=== PATIENT | male | born 1960 | race Caucasian/White ===

== ENCOUNTER 2018-01-16 15:17 | Emergency (ER) | payer MEDICARE, BC, SELFPAY ==
[2018-01-16 15:23] VITALS: BP 155/89; PULSE 76; RESP 14; TEMP 37; O2SAT 97
--- NOTE | 2018-01-16 15:42 | DI.REPORT_ITS ---
SYMPTOM/DIAGNOSIS: TWISTING INJURY PAIN PRIMARILY MEDIALLY LEFT KNEE: 01/16 Four views were obtained. There is mild narrowing of the medial tibial femoral cartilaginous joint space and there is medial femoral subluxation on the tibia. There is marked narrowing of the lateral patellofemoral cartilaginous joint space with marked lateral patellar subluxation. Very prominent hypertrophic spurring noted associated with lateral patellofemoral joint. CONCLUSION: DJD no evidence of acute injury.
[2018-01-16] MEDS: Acetaminophen 500 MG TAB 1000 MG PO (15:50)
--- NOTE | 2018-01-16 15:54 | ED.GENADUL_ITS ---
Disposition Clinical Impression: Avulsion, finger tip, Knee sprain Disposition: HOME Condition: Fair Instructions: Knee Sprain (ED), Finger Laceration (ED) Additional Instructions: Keep wound clean, dry, covered. He may wash with running water but do not soak or submerge. Please allow the adhesive to come off naturally, do not pick or pull at this. You may find a bandage to be beneficial to help pad the area and help with discomfort and also prevent him from picking at the adhesive. Please monitor for signs of infection including redness, warmth, drainage, increased pain, fever/chills. If these arise please seek care urgently once again. In regard to your knee pain, you have osteoarthritic changes on your x-ray. I am concerned he may have a meniscal injury versus ACL injury as my exam was slightly limited today. You do have a moderate effusion in the knee. Please contact orthopedics tomorrow to schedule follow-up. Encourage rest, ice, elevation. Tylenol and/or ibuprofen as needed for discomfort. Please continue with hinged knee brace until evaluated by orthopedics. If you develop new or worsening symptoms seek care urgently once again. Referrals: Gael Cardenas MD [ [facility] STAFF PHYSICIAN] - Medical Decision Making - Radiology Data Radiology results: report reviewed Radiology reviewed x-ray. They advised moderate sized knee joint effusion. Severe osteoarthritis of the patellofemoral joint with obliteration of the lateral patellofemoral joint space and lateral subluxation of the patella. Mild to moderate degenerative arthrosis of the tibiofemoral joint. 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 No fracture. Soft tissues are unremarkable. - Medical Decision Making Patient presents today with chief complaint of laceration to the right fifth digit and left knee pain. On exam, there is a section of avulsed tissue on the pad of the fifth digit. Patient is right-hand dominant. The wound is actively bleeding. No other injuries noted on the affected hand. Exam of the left lower extremity is significant for moderate knee effusion. Patient does have point tenderness over the anterior medial joint line. Ligamentously intact although my exam is slightly limited secondary to guarding and limited range of motion from swelling. I am concerned for possible meniscal injury. However, given the mechanism of injury I feel that imaging to evaluate for possible bony abnormality is appropriate. Patient will be given Tylenol to help with discomfort. We discussed the care of the avulsed tissue. After he returns from imaging, plan to anesthetize the digit, cleansed the wound and cover with adhesive. Discussed this plan with the patient who voiced understanding and is in agreement with plan. Patient and I discussed care of the digit with digital block, Minaya adhesive closure. We discussed risk/benefits as well as expected procedural steps. He voiced understanding and wished to proceed. Procedure note: Using standard sterile technique, a digital block was performed using 2% lidocaine plain. 5 cc was used. The sufficiently anesthetized the digit. Wound was then copiously irrigated with sterile saline. A tourniquet was used to the wound may be explored to base in bloodless field. No foreign body or debris was noted. After sufficiently cleansing the wound, a thin layer of adhesive was applied over the avulsed tissue. Patient tolerated procedure well. X-rays reviewed by radiologist concerning for osteoarthritis particularly at the patellofemoral joint. Moderate effusion is noted. Systems is noted in the proximal tibia. I discussed these findings with the patient. Advised it is my exam is slightly limited, I remain concerned for possible ACL injury but primarily in concern for meniscal injury given the mechanism and area of discomfort. Patient will be fitted with a hinged knee brace. Encourage rest, ice, elevation. Tylenol and/or ibuprofen as needed for discomfort. Advised that he call orthopedics tomorrow to schedule follow-up appointment. In regard to the finger, we discussed wound care in depth. We discussed the care of adhesive. Advised against applying any ointment as this may cause premature breakdown of the adhesive. We discussed signs symptoms of infection when to seek care urgently once again. All of his questions and concerns were addressed and he is agreement this plan. History of Present Illness - General Chief complaint: Laceration Stated complaint: FALL/LACERATION & KNEE INJURY Time Seen by Provider: 01/16/18 15:42 Source: patient, RN notes reviewed Mode of arrival: ambulatory Limitations: no limitations - History of Present Illness Initial comments: Patient is a 57-year-old male presenting today with chief complaint of laceration to the right fifth digit and injury to the left knee. Reports that prior to arrival he tripped while going down steps. He states that he misstepped down 8 steps. Did not fall. Caught himself on a shelf. States that their were knives on the shelf, this was where he caught the 5th digit of his left hand. Patient is RHD. States that while trying to catch his balance he suffered a rotational injury to the knee. Did not strike the knee. States that he did hear a 'pop'. Reports he took Naproxen this morning for chornic pain. Denies difficulty with ambulation. No fevers/chills. Denies altered sensation in the extremities. No CP, SOB. Did not strike his head, no LOC. No abdominal pain. No N/V. Denies incontinence. - Related Data Atorvastatin [Lipitor] 20 mg PO DAILY 04/29/15 Lisinopril/Hydrochlorothiazide [Lisinopril-Hctz 20-12.5 mg Tab] 1 tab PO DAILY 04/29/15 Naproxen Sodium 500 mg PO BID 04/29/15 Bupropion HCl 75 mg PO BID 01/16/18 Diazepam 5 mg PO DAILY 01/16/18 Doxepin HCl 100 mg PO HS 01/16/18 Prazosin HCl 2 mg PO HS 01/16/18 Risperidone [Risperdal] 0.5 mg PO BID 01/16/18 Allergies Allergy/AdvReac Type Severity Reaction Status Date / Time No Known Allergies Allergy Unverified 01/16/18 15:30 Review of Systems Constitutional: no symptoms reported Eyes: denies: vision change Respiratory: no symptoms reported. denies: cough, shortness of breath Cardiovascular: denies: chest pain, paroxysmal nocturnal dyspnea Gastrointestinal: as per HPI. denies: abdominal pain, nausea, vomiting Genitourinary: as per HPI Musculoskeletal: as per HPI Skin: as per HPI Neurological: as per HPI. denies: headache, weakness, numbness, paresthesias Past Medical History - Past Medical History Medical history: hypertension Surgical history: non-contributory General Exam - General Limitations: no limitations General appearance: alert, in no apparent distress - Head Head exam: Present: atraumatic - Eye Eye exam: Present: normal apperance - Respiratory Respiratory exam: Present: normal lung sounds bilaterally. Absent: respiratory distress, chest wall tenderness - GI/Abdominal GI/Abdominal exam: Present: soft, other (pelvis is stable, no pain with testing) . Absent: distended, tenderness, guarding - Rectal Rectal exam: Present: deferred - Extremities Exam Extremities exam: Present: tenderness, normal capillary refill, joint swelling. Absent: normal inspection (Exam the patient's right upper extremity is significant for a section of the avulsed tissue along the ulnar side of the pad of the fifth digit. Avulsed fragment is approximately 5 mm x 3 mm. There is active bleeding. Surrounding soft tissues. Sensation is otherwise intact. Good range of motion. No swelling of the DIP joint. Exam the patient's left lower extremity significant for moderate effusion of the knee. No erythema or warmth. No break in the skin. Patient has full extension. Flexion is limited to approximately 70 secondary to discomfort. Ligamentously intact although anterior posterior drawer testing is limited secondary to guarding and limited range of motion. Patient has joint line tenderness with palpation over the anterior medial aspect of the knee. Patient is able to straight leg raise well. No pain to palpation over the patella. Calf is soft and nontender. Sensation grossly intact distal to the knee), full ROM, pedal edema, calf tenderness - Neurological Exam Neurological exam: Present: alert, abnormal gait (Antalgic gait) - Psychiatric Psychiatric exam: Present: normal affect, normal mood - Skin Skin exam: Absent: intact (As above) Course Vital Signs - 24 hr 01/16/18 15:23 Temperature 37.0 C Pulse 76 Respiratory 14 Rate Blood Pressure 155/89 Pulse Oximetry 97
--- NOTE | 2018-01-16 16:23 | DI.VRAD_ITS ---
EXAM: XR Left Knee Complete, 4 or More Views CLINICAL HISTORY: 57 years old, male; Pain; Knee; Bilatera TECHNIQUE: Four or more views of the left knee. COMPARISON: No relevant prior studies available. FINDINGS: Bones/joints: Moderate-sized knee joint effusion. Severe osteoarthritis of the patellofemoral joint with obliteration of the lateral patellofemoral joint space and lateral subluxation of the patella. Mild to moderate degenerative arthrosis of the tibiofemoral joint. 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 No fracture. Soft tissues: Unremarkable. IMPRESSION: Osteoarthritis. Dictated and Authenticated by: Kamar Olson MD. Ordering:STEVEN CORONADO MD
== END 2018-01-16 17:12 | disposition home or self-care (01) ==
PROVIDERS: Emergency Provider Emergency Medicine; PCP Family Medicine
DX: S83.92XA Sprain of unspecified site of left knee, initial encounter (principal); S61.206A Unspecified open wound of right little finger without damage to nail, initial encounter; W18.49XA Other slipping, tripping and stumbling without falling, initial encounter; W26.0XXA Contact with knife, initial encounter; I10 Essential (primary) hypertension
CPT/HCPCS: 12001 ×2; 29505 ×2; 73564; 99282; 99284; L1810

== ENCOUNTER 2018-01-31 12:01 | Outpatient (CLI) | payer MEDICARE, BC, SELFPAY | END 2018-01-31 12:02 | PROVIDERS: PCP Family Medicine; Visit Provider Orthopaedic Surgery | DX: M17.12 Unilateral primary osteoarthritis, left knee (principal) | CPT/HCPCS: 20610; 99213; J7325 ==

== ENCOUNTER → 2018-03-19 09:58 | Outpatient (BNVA) | payer MEDICARE, BC, SELFPAY | PROVIDERS: Visit Provider Orthopaedic Surgery | DX: M17.12 Unilateral primary osteoarthritis, left knee (principal) | CPT/HCPCS: 99211; 99213 ==

== ENCOUNTER 2019-12-21 13:46 | Inpatient (IN) | payer MEDICARE, BC, SELFPAY ==
[2019-12-21] VITALS (41 sets, daily range): BP systolic 150–169; BP diastolic 79–100; PULSE 52–102; RESP 11–28; TEMP 36.1–37.2; O2SAT 93–100
--- NOTE | 2019-12-21 14:15 | DI.CT_ITS ---
EXAM: CT ABDOMEN PELVIS CTA CLINICAL HISTORY: pain mid upper abd radiating to back. TECHNIQUE: Imaging Protocol: Axial CT angiography was performed with multi-slice acquisition and m ulti-planar and/or 3D reconstructions. CONTRAST MATERIAL: Intravenous: Omnipaque 350 Contrast volume:structured data in ml Oral: yes / no Intravenous: Omnipaque 350 Contrast volume:100 mL Oral: No COMPARISON: No exams were available for comparison FINDINGS: ABDOMEN AND PELVIS: Abdomen: Celiac axis/mesenteric arteries: No evidence of occlusion or significant stenosis. Question of mild mural thickening involving the superior mesenteric artery. (Series 5, image 341) Renal Arteries: No evidence of occlusion or significant stenosis. There is a single renal artery per fusing each kidney. Aorta: No evidence of occlusion or significant stenosis. No aneurysm or dissection. Mild atheroscl erosis. Pelvis: Iliac Arteries: No evidence of occlusion or significant stenosis. Mild atherosclerosis. Common Femoral Arteries: No evidence of occlusion or significant stenosis. ABDOMEN: Liver: Normal density. No measurable mass. Portal, Superior Mesenteric, and Splenic Veins: Unremarkable. Gallbladder and Biliary Tract: No radiodense calculus or dilation. Pancreas: Normal density. No abnormal calcifications. Mild increased attenuation in the surrounding fat adjacent to the pancreatic head. Spleen: Normal. Adrenals: No masses seen. Kidneys: Normal size, contour and axis. No radiodense stones or obstructive uropathy. Bilateral renal cysts. Bowel: No bowel obstruction. Question of mild mural thickening in the proximal duodenum adjacent to the pancreatic head. No evidence of an acute appendicitis. Colonic diverticulosis but no evidence o f acute diverticulitis. Peritoneal Cavity: No ascites, collection or mesenteric inflammatory response. Lymph Nodes: Within normal limits. Bones: Degenerative changes. Soft Tissues: Bilateral fat containing inguinal hernia. PELVIS: Bladder: Symmetric distention, no gross wall thickening. Reproductive Organs: Unremarkable as visualized. Lymph Nodes: Within normal limits. Bones: Degenerative changes. IMPRESSION: 1. Findings suspicious for either duodenitis or mild acute pancreatitis. Correlate clinically. 2. Question of mild mural thickening involving the superior mesenteric artery. Possible vasculitis. RADIATION DOSE DELIVERED: Total DLP Total DLP DATA REPOSITORY: All CT scans at this facility are submitted to the National Radiology Data Registry (NRDR) Dose Index Registry (DIR) with the [employer] (ACR). RADIATION OPTIMIZATION: All CT scans at this facility use at least one of these dose optimization te chniques: automated exposure control; mA and/or kV adjustment per patient size (includes targeted exa ms where dose is matched to clinical indication); or iterative reconstruction.
[2019-12-21] MEDS: Normal Saline 1,000 ML 1000 ML IV (14:41)
[2019-12-21 14:45] LABS: Abs Immature Grans 0.01 k/cumm (0.0-0.09); Absolute Basophil Count 0.02 k/cumm (0.0-0.2); Absolute Eosinophil Count 0.05 k/cumm (0.0-0.7); Absolute Lymphocyte Count 1.58 k/cumm (1.2-3.4); Absolute Monocyte Count 0.79 k/cumm (0.11-0.7); Absolute Neutrophil Count 5.78 k/cumm (1.2-6.7); Basophils % 0.2; Eosinophils % 0.6; HCT 49.9 % (40.0-50.0); HGB 17.7 g/dL (13.5-17.5); Immature Grans % 0.1 %; Lactate 1.1 mmol/L (0.6-1.4); Lymphocytes % 19.2; Mean Corp. HGB Concentration 35.5 g/dL (32.0-36.0); Mean Corpuscular Hemoglobin 33.2 pg (27.0-33.0); Mean Corpuscular Volume 93.6 fL (80-95); Mean Platelet Volume 9.3 fL (8.0-11.0); Monocytes % 9.6; Neutrophils % 70.3; Platelet Count 187 x1000/uL (130-400); RBC 5.33 m/cumm (4.50-6.00); White Blood Cell Count 8.23 k/cumm (4.4-10.8)
[2019-12-21] MEDS: FAMOTIDINE 20 MG/50 ML BAG 200 MG IVPB (14:58)
[2019-12-21 15:00] LABS: ALT 25 U/L (16-63); AST 37 U/L (15-37); Alkaline Phosphatase 77 U/L (46-116); Anion Gap 11.8 mmol/L (3-11); BUN 12 mg/dL (7-18); Bilirubin, Total 0.8 mg/dL (0.2-1.0); CO2 26.2 mmol/L (21.0-32.0); CREATININE 0.91 mg/dL (0.70-1.30); Calcium 9.1 mg/dL (8.5-10.1); Chloride 98 mmol/L (98-107); Glucose 132 mg/dL (74-106); Lipase 120 U/L (73-393); Potassium 3.7 mmol/L (3.5-5.1); Sodium 136 mmol/L (136-145); Total Protein 7.6 g/dL (6.4-8.2)
[2019-12-21] MEDS: Ondansetron 4 MG/2 ML VIAL IVP (15:03)
[2019-12-21 15:07] LABS: Troponin I < 0.05 ng/mL (<0.06)
--- NOTE | 2019-12-21 15:12 | W.ED.GENAD ---
Discharge Plan Disposition Patient Disposition: [facility] INPATIENT Condition: Serious Discharge Details Chief Complaint: Abd Prob Clinical Impression: Acute duodenitis Primary Care Provider: Yanely Starkey ED Provider: Lasha Hurtado Home Meds and New Rx's Prescriptions: No Action atorvastatin [Lipitor] 20 MG tablet 20 mg PO DAILY RF: 0 lisinopril-hydrochlorothiazide 1 EACH tablet 1 tab PO DAILY RF: 0 naproxen sodium 550 MG tablet 500 mg PO BID RF: 0 aspirin 81 mg Tablet,Chewable 81 mg PO DAILY RF: 0 risperidone [Risperdal] 0.5 MG tablet 0.5 mg PO BID RF: 0 diazepam 5 MG tablet 5 mg PO DAILY RF: 0 doxepin 100 MG capsule 100 mg PO HS RF: 0 bupropion HCl 75 MG tablet 75 mg PO BID RF: 0 prazosin 2 MG capsule 2 mg PO HS RF: 0 Medical Decision Making 6??59-year-old male here with mid upper abdominal pain that radiates to his back with associated anorexia and nausea for the past couple days. Pain is out of proportion to exam. I will give Pepcid IV. Concern for acute life-threatening intra-abdominal surgical process including consideration for aortic aneurysm versus pancreatitis versus other. Plan to obtain CT of the abdomen pelvis. Will obtain lipase and LFTs. 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 Minimal thickening and luminal narrowing of the superior mesenteric artery without occlusion. Findings suggestive of either duodenitis or mild acute pancreatitis. Pancreas noted to have slight stranding around the head of the pancreas. Bowel noted to have possible mucosal thickening of the inferior duodenal flexure. Labs reviewed and nondiagnostic. No leukocytosis. Normal lactate. Lipase normal. LFTs normal. I did call and speak with on-call general surgery to discuss CT findings, Dr. Fonseca recommended checking ESR and CRP and treating with PPI and Carafate. 1918 --CRP slightly elevated, normal ESR. Unlikely vasculitis. Consider intermittent mesenteric ischemia?. I did call and speak with Dr. Barrera, on-call hospitalist, who recommended discussion with vascular surgery at [facility]. Call placed to [facility] to request consultation. CT of the abdomen pelvis sent to [facility] for review. 1934 --I spoke with on-call vascular surgeon at [facility] and discussed ED presentation and course including diagnostics. He notes no surgical intervention is warranted at this time and recommends medicine admission. Transfer center notes currently unable to accept medical patients in transfer. Plan to admit here for continued IV fluid and reassessment. I will discuss case with Dr. Barrera, on-call hospitalist. I did reassess the patient and notes after antiacids his pain is significantly improved now 10/11. HPI General Mode of arrival: ambulatory. Date/Time Provider Initiated Documentation: 12/21/19 14:01. Limitations to Documentation: no limitations. Information obtained by: patient. HPI Narrative: 59-year-old male presents with chief complaint of abdominal pain. Patient notes mid upper abdominal pain that started 2 days ago and has persisted. Pain is described as a constant ache. Pain radiates to bilateral upper back. He has associated decreased appetite and nausea. He does also notes some subjective fevers recently. No recent travel. No cough. He has had loose stool over the past couple days. No bloody bowel movements. No urinary symptoms. Patient notes occasional alcohol consumption. Related Data Home Medications Medication Instructions Recorded Confirmed atorvastatin [Lipitor] 20 mg PO DAILY 04/29/15 12/21/19 lisinopril-hydrochlorothiazide 1 tab PO DAILY 04/29/15 12/21/19 naproxen sodium 500 mg PO BID 04/29/15 12/21/19 bupropion HCl 75 mg PO BID 01/16/18 12/21/19 diazepam 5 mg PO DAILY 01/16/18 12/21/19 doxepin 100 mg PO HS 01/16/18 12/21/19 prazosin 2 mg PO HS 01/16/18 12/21/19 risperidone [Risperdal] 0.5 mg PO BID 01/16/18 12/21/19 aspirin 81 mg PO DAILY 12/21/19 12/21/19 Allergies Allergy/AdvReac Type Severity Reaction Status Date / Time No Known Allergies Allergy Unverified 12/21/19 14:25 General Stated Complaint: Abd Prob SHAYAN: 3 Review of Systems All systems reviewed & are unremarkable except as noted in HPI and below Cardiovascular Cardiovascular: Denies chest pain Respiratory Respiratory: Denies cough Gastrointestinal Gastrointestinal: Reports as per HPI [facility] Medical History (Updated 12/21/19 @ 19:39 by Lasha Hurtado MD) Hypertension (Chronic) Social History Smoking/Tobacco Use Status: Former Tobacco Use Alcohol Intake: current Alcohol Intake frequency: holidays/special occasions only Drug use: Occasionally Substance use type: marijuana Do you feel safe in your relationship?: Yes Exam Const General: cooperative and no acute distress HENMT Mouth: moist mucous membranes Eyes Conjunctivae: normal conjunctivae Sclera: normal sclerae Neck Neck: trachea midline and supple Resp Auscultation: clear to auscultation bilaterally, no rales, no rhonchi and no wheezes Cardio Jugular venous pressure: no JVD Rate: regular rate and not tachycardic Rhythm: regular rhythm GI Palpation: soft, not firm, no guarding, no hernias, no masses, no pulsatile masses, not rigid, tender (Mid upper abdomen) not at McBurney's point and No ascites Auscultation: normal bowel sounds Skin General skin exam: no rashes or lesions noted Neuro General: patient alert, patient awake, patient oriented x3 and tone normal Extrem General: no edema Psych Appearance: grossly normal Mental Status: mental status grossly normal Speech and Movement: speech and movement normal Course Vital Signs Vital signs: Vital Signs Temperature 36.1 C L 12/21/19 14:15 Pulse 78 12/21/19 14:15 Respiratory Rate 18 12/21/19 14:15 Blood Pressure 151/92 H 12/21/19 14:15 Pulse Oximetry 96 12/21/19 14:15 Temperature 36.1 C L 12/21/19 14:15 Temperature Source Skin 12/21/19 14:15 Pulse 57 L 12/21/19 15:01 Pulse 61 12/21/19 15:01 Respiratory Rate 17 12/21/19 15:01 Respiratory Effort Short of Breath 12/21/19 14:20 Blood Pressure 154/100 H 12/21/19 15:01 Blood Pressure Mean 113 12/21/19 15:01 Blood Pressure Position Sitting 12/21/19 14:15 Pulse Oximetry 96 12/21/19 15:01 Oxygen Delivery Method Room Air 12/21/19 14:15 Oxygen Flow Rate 0 12/21/19 14:15 Pain Level 10 12/21/19 14:15 Lab/Test Results Lab/Test Results: Laboratory Tests Range/Units 12/21/19 12/21/19 12/21/19 14:34 14:34 14:34 WBC (4.4-10.8) k/cumm 8.23 RBC (4.50-6.00) m/cumm 5.33 Hgb (13.5-17.5) g/dL 17.7 H Hct (40.0-50.0) % 49.9 MCV (80-95) fL 93.6 MCH (27.0-33.0) pg 33.2 H MCHC (32.0-36.0) g/dL 35.5 RDW (11.8-14.1) % 13.0 Plt Count (130-400) x1000/uL 187 MPV (8.0-11.0) fL 9.3 Immature Gran % % 0.1 Neutrophils % 70.3 Lymphocytes % 19.2 Monocytes % 9.6 Eosinophils % 0.6 Basophils % 0.2 Absolute Neutrophils (1.2-6.7) k/cumm 5.78 Absolute Lymphocytes (1.2-3.4) k/cumm 1.58 Absolute Monocytes (0.11-0.7) k/cumm 0.79 H Absolute Eosinophils (0.0-0.7) k/cumm 0.05 Absolute Basophils (0.0-0.2) k/cumm 0.02 Sodium (136-145) mmol/L 136 Potassium (3.5-5.1) mmol/L 3.7 Chloride (98-107) mmol/L 98 Carbon Dioxide (21.0-32.0) mmol/L 26.2 Anion Gap (3-11) mmol/L 11.8 H BUN (7-18) mg/dL 12 Creatinine (0.70-1.30) mg/dL 0.91 Estimated GFR/1.73 m2 (mL/min/1.73m2) >= 60.00 Glucose (74-106) mg/dL 132 H Lactate (0.6-1.4) mmol/L 1.1 Calcium (8.5-10.1) mg/dL 9.1 Total Bilirubin (0.2-1.0) mg/dL 0.8 AST (15-37) U/L 37 ALT (16-63) U/L 25 Alkaline Phosphatase (46-116) U/L 77 Troponin I (<0.06) ng/mL < 0.05 Total Protein (6.4-8.2) g/dL 7.6 Albumin (3.4-5.0) g/dL 4.0 Lipase (73-393) U/L 120
[2019-12-21] MEDS: Normal Saline Flush 10 ML SYR IVP (15:45)
[2019-12-21] MEDS: Normal Saline - Diluent 50 ML VIAL IV (15:45)
[2019-12-21] MEDS: Omnipaque 350 MG/ML 100 ML BTL IJ (15:46)
--- NOTE | 2019-12-21 16:35 | DI.VRAD_ITS ---
PROCEDURE INFORMATION: Exam: CT Angiography Abdomen and Pelvis With Contrast Exam date and time: 12/21/2019 3:42 PM Age: 59 years old Clinical indication: Abdominal pain; Other: Pain in the mid and upper abd radiating to back TECHNIQUE: Imaging protocol: Computed tomographic angiography of the abdomen and pelvis with intravenous contrast material. 3D rendering: MIP and/or 3D reconstructed images were created by the technologist. Radiation optimization: All CT scans at this facility use at least one of these dose optimization techniques: automated exposure control; mA and/or kV adjustment per patient size (includes targeted exams where dose is matched to clinical indication); or iterative reconstruction. Contrast material: OMNIPAQUE 350; Contrast volume: 100 ml; Contrast route: INTRAVENOUS (IV); COMPARISON: No relevant prior studies available. FINDINGS: Aorta: Unremarkable. No aneurysm. Celiac trunk and mesenteric arteries: Mural thickening and luminal narrowing of the superior mesenteric artery without occlusion. See for example sagittal MIP series 7, image 68. Normal celiac trunk, renal arteries and inferior mesenteric artery/ Renal arteries: No occlusion or significant stenosis. Right iliac arteries: No occlusion or significant stenosis. Left iliac arteries: No occlusion or significant stenosis. Liver: Diffuse fatty infiltration. Gallbladder and bile ducts: Unremarkable. No calcified stones. No ductal dilation. Pancreas: Slight stranding around the head of the pancreas. Spleen: Unremarkable. No splenomegaly. Adrenals: Nodular right adrenal gland. Kidneys and ureters: 4.5 cm left renal cyst. No hydronephrosis. Stomach and bowel: Possible mucosal thickening of the inferior duodenal flexure. No evidence of bowel obstruction. Colonic diverticulosis without diverticulitis. Appendix: Normal appendix. Intraperitoneal space: Unremarkable. No free air. No significant fluid collection. Lymph nodes: Unremarkable. No enlarged lymph nodes. Bladder: Unremarkable. No mass. Reproductive: Unremarkable as visualized. Bones/joints: No acute fracture. No dislocation. Soft tissues: Unremarkable. IMPRESSION: 1. Findings suggestive of either duodenitis or mild acute pancreatitis. 2. 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 Dictated and Authenticated by: Ravi Amaya MD. Ordering:YING Colby MD
[2019-12-21 16:40] LABS: Bilirubin Negative (Negative); Blood Trace-intact (Negative); Clarity Clear (Clear); Glucose Negative (Negative); Ketones Negative (Negative); Leukocyte Esterase Negative (Negative); Nitrite Negative (Negative); Urobilinogen 0.2 EU/dL (Up TO 0.2)
[2019-12-21 16:47] LABS: Bacteria Negative HPF (Negative); C & S Indicated? No; Casts Negative LPF (Negative); Crystals Few Amorphous HPF (Negative); Epithelial Cells Negative HPF (Negative); Mucus Negative (Negative); RBC 0-2 HPF (0-2); WBC 0-2 HPF (0-5)
[2019-12-21 18:09] LABS: C-Reactive Protein 0.49 mg/dL (0.0-0.3)
[2019-12-21 18:48] LABS: ESR 13 mm/hr (1-20)
[2019-12-21 20:23] LABS: Lactate 1.1 mmol/L (0.6-1.4)
--- NOTE | 2019-12-21 20:32 | W.PM.HP.N ---
Date of service: 12/21/19 Time of Service: 20:32 Assessment and Plan Assessment and plan (1) Acute duodenitis: Status: Acute Assessment and plan: Continue IV fluids, antiemetics, IV H2 blockers, IV Protonix and keep n.p.o. for an EGD in the morning. 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 Radiologist suggest the possibility of a arteritis. However the patient's sed rate goes against any vasculitis. Dr. Aguirre has ordered a vasculitis rheumatologic panel. 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 But there is no evidence for acute thrombosis. Patient is already on a statin. I will get a lipid profile on him in the morning. Patient needs to be encouraged to quit smoking in order to prevent further vascular damage. History of Present Illness History of Present Illness Chief Complaint: Abdominal pain Narrative: 59-year-old male smoker with a past medical history significant for hyperlipidemia, hypertension, anxiety disorder, osteoarthritis of the knees, status post remote left TKA who is been chronically using NSAIDs to treat arthritis of his right knee. He presents emergency department with acute epigastric abdominal pain radiating through to his back this been going on since night (3 nights ago) not associated with a melena or hematochezia or vomiting but some nausea. He routinely alternates between acetaminophen and aspirin and naproxen to treat his arthritis. He smokes about a half a pack of cigarettes daily and has been a smoker for many years. He has occasional alcohol use but not on a regular basis. With the epigastric abdominal pain he has had some chills and has had some diarrhea but no melena. Work-up in the emergency department included routine labs including CBC, CMP, urinalysis as well as CT angiogram of his abdomen and pelvis. CBC was remarkable for polycythemia with a hemoglobin of 17.7 g but no leukocytosis and no thrombocytosis. CMP was unremarkable. C-reactive protein was elevated at 0.49 but his lipase was normal at 120 and his sed rate was normal at 13. CT angiogram of his abdomen pelvis showed no aortic aneurysm. But there is some mural thickening and luminal narrowing of the superior mesenteric artery without occlusion. Celiac trunk renal arteries and inferior mesenteric artery were normal as well as the renal arteries and iliac arteries were normal. He has some fatty liver infiltration. Gallbladder bile ducts are unremarkable. Pancreas demonstrates slight stranding around the head of the pancreas. 4.5 cm left renal cyst was seen but no hydronephrosis. There is mucosal thickening of the inferior duodenal flexure but no bowel obstruction. Diverticulosis of the colon was present without diverticulitis. Patient's treatment emergency department included IV fluids and antiemetics as well as a dose of Pepcid and Protonix and Carafate which markedly improved his abdominal pain. Dr. Aguirre, general surgeon, has been consulted for an EGD in the morning. Patient be kept n.p.o. given IV fluid hydration continued IV Protonix and Pepcid the patient will undergo an EGD tomorrow morning. Review of Systems All systems reviewed & are unremarkable except as noted in HPI and below PFSH Medical History (Updated 12/21/19 @ 23:29 by Catrachito Barrera) Anxiety disorder (Acute) Hyperlipidemia (Acute) Hypertension (Chronic) Primary osteoarthritis of left knee (Chronic) Osteoarthritis of left knee with worse arthritis between the patella and the femur with lateral subluxation of the patella. Recommend [facility] opinion at [facility] with either Dr. Storm for Dr. Schilling as the patient requests Surgical History (Updated 12/21/19 @ 23:25 by Catrachito Barrera) History of arthroplasty of left knee (Acute) Social History Smoking/Tobacco Use Status: Former Tobacco Use Alcohol Intake: current Alcohol Intake frequency: holidays/special occasions only Drug use: Occasionally Substance use type: marijuana Do you feel safe in your relationship?: Yes Meds Home Medications and Allergies Home Medications Medication Instructions Recorded Confirmed Type atorvastatin [Lipitor] 20 mg PO DAILY 04/29/15 12/21/19 History lisinopril-hydrochlorothiazide 1 tab PO DAILY 04/29/15 12/21/19 History naproxen sodium 500 mg PO BID 04/29/15 12/21/19 History bupropion HCl 75 mg PO BID 01/16/18 12/21/19 History diazepam 5 mg PO DAILY 01/16/18 12/21/19 History doxepin 100 mg PO HS 01/16/18 12/21/19 History prazosin 2 mg PO HS 01/16/18 12/21/19 History risperidone [Risperdal] 0.5 mg PO BID 01/16/18 12/21/19 History aspirin 81 mg PO DAILY 12/21/19 12/21/19 History Allergies Allergy/AdvReac Type Severity Reaction Status Date / Time No Known Allergies Allergy Unverified 12/21/19 14:25 Exam Narrative Exam Narrative: Middle-age male who is alert and oriented to person place time circumstances. Very pleasant conversationalist. In no acute distress. HEENT feels plethoric facial appearance otherwise normal mucosal membranes. Neck is short and obese with no JVD and normal carotid pulses Chest is barrel chested with clear lung estrada. Heart is regular rate and rhythm without murmur rub or gallop. Abdomen is obese soft and nontender no guarding or rebound tenderness. He has normal active bowel sounds. No palpable masses. Extremities without peripheral cyanosis or edema. Neuro exam is nonfocal grossly intact Rectal exam deferred Results Labs Result diagrams: 12/21/19 14:34 12/21/19 14:34 Labs: Laboratory Results - last 24 hr 12/21/19 12/21/19 12/21/19 14:34 14:34 14:34 WBC 8.23 RBC 5.33 Hgb 17.7 H Hct 49.9 MCV 93.6 MCH 33.2 H MCHC 35.5 RDW 13.0 Plt Count 187 MPV 9.3 Immature Gran % 0.1 Neutrophils % 70.3 Lymphocytes % 19.2 Monocytes % 9.6 Eosinophils % 0.6 Basophils % 0.2 Absolute Neutrophils 5.78 Absolute Lymphocytes 1.58 Absolute Monocytes 0.79 H Absolute Eosinophils 0.05 Absolute Basophils 0.02 ESR Sodium 136 Potassium 3.7 Chloride 98 Carbon Dioxide 26.2 Anion Gap 11.8 H BUN 12 Creatinine 0.91 Estimated GFR/1.73 m2 >= 60.00 Glucose 132 H Lactate 1.1 Calcium 9.1 Total Bilirubin 0.8 AST 37 ALT 25 Alkaline Phosphatase 77 Troponin I < 0.05 C-Reactive Protein Total Protein 7.6 Albumin 4.0 Lipase 120 Urine Color Urine Clarity Urine pH Ur Specific [place] Urine Protein Urine Ketones Urine Blood Urine Nitrite Urine Bilirubin Urine Urobilinogen Ur Leukocyte Esterase Urine RBC Urine WBC Ur Epithelial Cells Urine Crystals Urine Bacteria Urine Casts Urine Mucus Ur Culture Indicated? Urine Glucose ANCA Immunofluorescen ANCA Titer ANCA Pattern 12/21/19 12/21/19 12/21/19 14:34 14:34 14:34 WBC RBC Hgb Hct MCV MCH MCHC RDW Plt Count MPV Immature Gran % Neutrophils % Lymphocytes % Monocytes % Eosinophils % Basophils % Absolute Neutrophils Absolute Lymphocytes Absolute Monocytes Absolute Eosinophils Absolute Basophils ESR 13 Sodium Potassium Chloride Carbon Dioxide Anion Gap BUN Creatinine Estimated GFR/1.73 m2 Glucose Lactate Calcium Total Bilirubin AST ALT Alkaline Phosphatase Troponin I C-Reactive Protein 0.49 H Total Protein Albumin Lipase Urine Color Urine Clarity Urine pH Ur Specific [place] Urine Protein Urine Ketones Urine Blood Urine Nitrite Urine Bilirubin Urine Urobilinogen Ur Leukocyte Esterase Urine RBC Urine WBC Ur Epithelial Cells Urine Crystals Urine Bacteria Urine Casts Urine Mucus Ur Culture Indicated? Urine Glucose ANCA Immunofluorescen Cancelled ANCA Titer Cancelled ANCA Pattern Cancelled 12/21/19 12/21/19 12/21/19 16:30 18:02 18:02 WBC RBC Hgb Hct MCV MCH MCHC RDW Plt Count MPV Immature Gran % Neutrophils % Lymphocytes % Monocytes % Eosinophils % Basophils % Absolute Neutrophils Absolute Lymphocytes Absolute Monocytes Absolute Eosinophils Absolute Basophils ESR Cancelled Sodium Potassium Chloride Carbon Dioxide Anion Gap BUN Creatinine Estimated GFR/1.73 m2 Glucose Lactate Calcium Total Bilirubin AST ALT Alkaline Phosphatase Troponin I C-Reactive Protein Cancelled Total Protein Albumin Lipase Urine Color Yellow Urine Clarity Clear Urine pH 7.0 Ur Specific [place] 1.010 Urine Protein Negative Urine Ketones Negative Urine Blood Trace-intact H Urine Nitrite Negative Urine Bilirubin Negative Urine Urobilinogen 0.2 Ur Leukocyte Esterase Negative Urine RBC 0-2 Urine WBC 0-2 Ur Epithelial Cells Negative Urine Crystals Few amorphous Urine Bacteria Negative Urine Casts Negative Urine Mucus Negative Ur Culture Indicated? No Urine Glucose Negative ANCA Immunofluorescen ANCA Titer ANCA Pattern 12/21/19 20:10 WBC RBC Hgb Hct MCV MCH MCHC RDW Plt Count MPV Immature Gran % Neutrophils % Lymphocytes % Monocytes % Eosinophils % Basophils % Absolute Neutrophils Absolute Lymphocytes Absolute Monocytes Absolute Eosinophils Absolute Basophils ESR Sodium Potassium Chloride Carbon Dioxide Anion Gap BUN Creatinine Estimated GFR/1.73 m2 Glucose Lactate 1.1 Calcium Total Bilirubin AST ALT Alkaline Phosphatase Troponin I C-Reactive Protein Total Protein Albumin Lipase Urine Color Urine Clarity Urine pH Ur Specific [place] Urine Protein Urine Ketones Urine Blood Urine Nitrite Urine Bilirubin Urine Urobilinogen Ur Leukocyte Esterase Urine RBC Urine WBC Ur Epithelial Cells Urine Crystals Urine Bacteria Urine Casts Urine Mucus Ur Culture Indicated? Urine Glucose ANCA Immunofluorescen ANCA Titer ANCA Pattern Last Vital Signs Temp 36.1 C L 12/21/19 14:15 Pulse 57 L 12/21/19 19:46 Resp 13 12/21/19 19:50 BP 169/91 H 12/21/19 19:46 Pulse Ox 97 12/21/19 19:50 COVID-19 Screening Have you,or household,traveled outside [place] in last 14 days?: No Had IN PERSON contact w/suspected or confirmed C-19 person: No
[2019-12-21] MEDS: Pantoprazole 40 MG VIAL IVP (20:45)
[2019-12-21] MEDS: Sucralfate 1 GM TAB PO (20:46)
[2019-12-21] MEDS: Lactated Ringers 1,000 ML 100 ML IV (22:00)
--- NOTE | 2019-12-21 22:18 | SCONE_ITS ---
Date of service: 12/21/19 Time of Service: 22:18 Assessment and Plan Assessment and plan (1) Acute duodenitis: Status: Acute Assessment and plan: EGD in am Risks: Informed consent is obtained for the procedural (explained in simple layman's terms that the pt and/or family could understand) explaining risks vs benefits and alternatives to the procedure and consequences if we do not do the procedure and need/rational for the procedure. Risks include but are not limited to:bleeding, infection, perforation of colon. This would necessitate emergency surgery to repair the damage w/ possible osto my; and other associated complications w/ the required surgery. Also complications of anesthesia including aspiration,[place]/CVA/. Patient was kept on a PPI and oral Carafate overnight. Labs are reviewed. Hemoglobin is stable. Sed rate is normal again. Patient actually feels much better today. History of Present Illness Narrative: pt seen adn examined. Pt came into the ED sunday c/o abdominal pain. The pain is better today. It was in the epigastric position adn radiated into the back. It had beenon going for 3 days. He also had a been episodes of diarrhea. He has no hx of chronic abdom pain. He did not do any heavy lifting/traveling/eat anything out of the ordinary or was exposed to any illness that he is ch of. He is not normally on any stomach meds. The last 2 wks he notes that he has been taking tums regularly- which he normally does not do. He did have nausea. He denies any vomiting. He has been eating. He did not have any blood in stools or dark tary stools. He denies any pain or difficulty swallowing. No wt loss. He denies any personal or family hx of autoimmune d/o- RA/thyroid/IBD, etc. He was started on an IV PPI and carafate. He does feel better tdoay than when he was in the ED last pm. +smoker 1/2ppd alcohol 2-3/wk. He takes baby ASA daily and also naprasyn 500mg BID for OA pain. drinks 1 coffee daily. occ soda. He has had a CE in the past and no problem w/ anesthesia no prior abdom surg No DM/CVA no DM no TORO no kidney Dx Consults Consult date: 12/22/19 Requesting physician: Catrachito Barrera Review of Systems All systems reviewed & are unremarkable except as noted in HPI and below [facility] Medical History Anxiety disorder (Acute) Hyperlipidemia (Acute) Hypertension (Chronic) Primary osteoarthritis of left knee (Chronic) Osteoarthritis of left knee with worse arthritis between the patella and the femur with lateral subluxation of the patella. Recommend [facility] opinion at [facility] with either Dr. Storm for Dr. Schilling as the patient requests Surgical History History of arthroplasty of left knee (Acute) Social History Smoking/Tobacco Use Status: Former Tobacco Use Alcohol Intake: current Alcohol Intake frequency: holidays/special occasions only Drug use: Occasionally Substance use type: marijuana Do you feel safe in your relationship?: Yes Exam Const General: cooperative, healthy appearing, comfortable, no acute distress, well developed and well groomed Nutritional Appearance: average body habitus and well nourished Orientation: alert, awake and oriented x3 HENIN Head: normal to inspection, normocephalic and atraumatic Ears: hearing grossly normal bilaterally and external ears normal General nose exam: external nose normal Face and sinus: normal facial exam and sinuses nontender Mouth: oral mucosae normal, lip normal, tongue normal and moist mucous membranes Teeth and gingiva: dentition normal Eyes General: appearance normal, both eyes and all related structures Conjunctivae: conjunctivae normal Sclera: sclerae normal Pupils: PERRL Neck Neck: normal visual inspection and full ROM Chest Chest: normal inspection of the chest Resp Effort & Inspection: normal respiratory effort, able to speak in complete senten robert, no cough, no nasal flaring, not tachypneic and no use of accessory muscles Auscultation: clear to auscultation bilaterally, no rales, no rhonchi and no wheezes Cardio Jugular venous pressure: no JVD Rate: regular rate Rhythm: regular rhythm GI Inspection: normal to inspection, no edema and non-distended Palpation: soft, no masses, nontender and No ascites Auscultation: normal bowel sounds Skin General skin exam: no rashes or lesions noted Trauma: no lacerations or abrasions Neuro General: patient alert, patient oriented x3, oriented, gait normal, moves all extremities, no focal motor deficits and CN's II-XI intact bilaterally Cognition: normal cognition Speech: speech normal Gait: normal gait Motor: muscle tone normal throughout Extrem General: normal to inspection, full ROM and no clubbing, cyanosis or edema Psych Appearance: grossly normal and well kempt Mental Status: mental status grossly normal Speech and Movement: speech and movement normal Affect: normal affect Results Last Vital Signs Temp 36.9 C 12/21/19 21:08 Pulse 55 L 12/21/19 21:08 Resp 18 12/21/19 21:08 BP 163/96 H 12/21/19 21:08 Pulse Ox 93 L 12/21/19 21:08 Labs Result diagrams: 12/22/19 06:12 12/22/19 06:12 Labs: Laboratory Results - last 24 hr 12/21/19 12/21/19 12/21/19 14:34 14:34 14:34 WBC 8.23 RBC 5.33 Hgb 17.7 H Hct 49.9 MCV 93.6 MCH 33.2 H MCHC 35.5 RDW 13.0 Plt Count 187 MPV 9.3 Immature Gran % 0.1 Neutrophils % 70.3 Lymphocytes % 19.2 Monocytes % 9.6 Eosinophils % 0.6 Basophils % 0.2 Absolute Neutrophils 5.78 Absolute Lymphocytes 1.58 Absolute Monocytes 0.79 H Absolute Eosinophils 0.05 Absolute Basophils 0.02 ESR Sodium 136 Potassium 3.7 Chloride 98 Carbon Dioxide 26.2 Anion Gap 11.8 H BUN 12 Creatinine 0.91 Estimated GFR/1.73 m2 >= 60.00 Glucose 132 H Lactate 1.1 Calcium 9.1 Total Bilirubin 0.8 AST 37 ALT 25 Alkaline Phosphatase 77 Troponin I < 0.05 C-Reactive Protein Total Protein 7.6 Albumin 4.0 Lipase 120 Urine Color Urine Clarity Urine pH Ur Specific [place] Urine Protein Urine Ketones Urine Blood Urine Nitrite Urine Bilirubin Urine Urobilinogen Ur Leukocyte Esterase Urine RBC Urine WBC Ur Epithelial Cells Urine Crystals Urine Bacteria Urine Casts Urine Mucus Ur Culture Indicated? Urine Glucose ANCA Immunofluorescen ANCA Titer ANCA Pattern 12/21/19 12/21/19 12/21/19 14:34 14:34 14:34 WBC RBC Hgb Hct MCV MCH MCHC RDW Plt Count MPV Immature Gran % Neutrophils % Lymphocytes % Monocytes % Eosinophils % Basophils % Absolute Neutrophils Absolute Lymphocytes Absolute Monocytes Absolute Eosinophils Absolute Basophils ESR 13 Sodium Potassium Chloride Carbon Dioxide Anion Gap BUN Creatinine Estimated GFR/1.73 m2 Glucose Lactate Calcium Total Bilirubin AST ALT Alkaline Phosphatase Troponin I C-Reactive Protein 0.49 H Total Protein Albumin Lipase Urine Color Urine Clarity Urine pH Ur Specific [place] Urine Protein Urine Ketones Urine Blood Urine Nitrite Urine Bilirubin Urine Urobilinogen Ur Leukocyte Esterase Urine RBC Urine WBC Ur Epithelial Cells Urine Crystals Urine Bacteria Urine Casts Urine Mucus Ur Culture Indicated? Urine Glucose ANCA Immunofluorescen Cancelled ANCA Titer Cancelled ANCA Pattern Cancelled 12/21/19 12/21/19 12/21/19 16:30 18:02 18:02 WBC RBC Hgb Hct MCV MCH MCHC RDW Plt Count MPV Immature Gran % Neutrophils % Lymphocytes % Monocytes % Eosinophils % Basophils % Absolute Neutrophils Absolute Lymphocytes Absolute Monocytes Absolute Eosinophils Absolute Basophils ESR Cancelled Sodium Potassium Chloride Carbon Dioxide Anion Gap BUN Creatinine Estimated GFR/1.73 m2 Glucose Lactate Calcium Total Bilirubin AST ALT Alkaline Phosphatase Troponin I C-Reactive Protein Cancelled Total Protein Albumin Lipase Urine Color Yellow Urine Clarity Clear Urine pH 7.0 Ur Specific [place] 1.010 Urine Protein Negative Urine Ketones Negative Urine Blood Trace-intact H Urine Nitrite Negative Urine Bilirubin Negative Urine Urobilinogen 0.2 Ur Leukocyte Esterase Negative Urine RBC 0-2 Urine WBC 0-2 Ur Epithelial Cells Negative Urine Crystals Few amorphous Urine Bacteria Negative Urine Casts Negative Urine Mucus Negative Ur Culture Indicated? No Urine Glucose Negative ANCA Immunofluorescen ANCA Titer ANCA Pattern 12/21/19 20:10 WBC RBC Hgb Hct MCV MCH MCHC RDW Plt Count MPV Immature Gran % Neutrophils % Lymphocytes % Monocytes % Eosinophils % Basophils % Absolute Neutrophils Absolute Lymphocytes Absolute Monocytes Absolute Eosinophils Absolute Basophils ESR Sodium Potassium Chloride Carbon Dioxide Anion Gap BUN Creatinine Estimated GFR/1.73 m2 Glucose Lactate 1.1 Calcium Total Bilirubin AST ALT Alkaline Phosphatase Troponin I C-Reactive Protein Total Protein Albumin Lipase Urine Color Urine Clarity Urine pH Ur Specific [place] Urine Protein Urine Ketones Urine Blood Urine Nitrite Urine Bilirubin Urine Urobilinogen Ur Leukocyte Esterase Urine RBC Urine WBC Ur Epithelial Cells Urine Crystals Urine Bacteria Urine Casts Urine Mucus Ur Culture Indicated? Urine Glucose ANCA Immunofluorescen ANCA Titer ANCA Pattern
[2019-12-22] MEDS: FAMOTIDINE 20 MG/50 ML BAG 200 MG IVPB ×2 (02:50→14:07)
[2019-12-22 07:32] VITALS: BP 162/96; PULSE 52; RESP 20; TEMP 37; O2SAT 97
[2019-12-22 07:32] LABS: Abs Immature Grans 0.01 k/cumm (0.0-0.09); Absolute Basophil Count 0.02 k/cumm (0.0-0.2); Absolute Lymphocyte Count 1.81 k/cumm (1.2-3.4); Absolute Monocyte Count 0.63 k/cumm (0.11-0.7); Absolute Neutrophil Count 3.78 k/cumm (1.2-6.7); Basophils % 0.3; Eosinophils % 1.6; HCT 45.4 % (40.0-50.0); Immature Grans % 0.2 %; Lymphocytes % 28.5; Mean Corp. HGB Concentration 35.2 g/dL (32.0-36.0); Mean Corpuscular Hemoglobin 33.5 pg (27.0-33.0); Mean Corpuscular Volume 95.2 fL (80-95); Mean Platelet Volume 9.9 fL (8.0-11.0); Monocytes % 9.9; Neutrophils % 59.5; Platelet Count 178 x1000/uL (130-400); RBC 4.77 m/cumm (4.50-6.00); White Blood Cell Count 6.35 k/cumm (4.4-10.8)
[2019-12-22 07:42] LABS: ALT 21 U/L (16-63); AST 32 U/L (15-37); Albumin 3.3 g/dL (3.4-5.0); Alkaline Phosphatase 67 U/L (46-116); BUN 14 mg/dL (7-18); Bilirubin, Total 0.7 mg/dL (0.2-1.0); CREATININE 0.96 mg/dL (0.70-1.30); Calcium 8.6 mg/dL (8.5-10.1); Chloride 102 mmol/L (98-107); Glucose 107 mg/dL (74-106); Potassium 3.8 mmol/L (3.5-5.1); Sodium 138 mmol/L (136-145); Total Protein 6.4 g/dL (6.4-8.2)
[2019-12-22 07:44] LABS: Amylase 41 U/L (25-115); C-Reactive Protein 0.74 mg/dL (0.0-0.3); Lipase 98 U/L (73-393); Magnesium 2.2 mg/dL (1.8-2.4)
[2019-12-22 07:56] LABS: Calculated LDL 62 mg/dL (<100); Cholesterol 126 mg/dL (<200); HDL Cholesterol 25 mg/dL (40-60); Triglyceride 197 mg/dL (<150)
[2019-12-22 08:14] LABS: ESR 10 mm/hr (1-20)
[2019-12-22 08:23] VITALS: BP 162/96; PULSE 52; RESP 20; TEMP 37; O2SAT 97
--- NOTE | 2019-12-22 08:56 | PDOC.CMIN ---
- If Service Date Differs Date of service: 12/22/19 Time of Service: 14:16 Care Management Initial Assess REASON FOR HOSPITALIZATION:: Duodenitis, superior mesenteric artery inflammation PAST MEDICAL HISTORY/PAST SURGICAL HISTORY:: Anxiety disorder, hyperlipidemia, hypertension, primary osteoarthritis of left knee, arthroplasty of left knee PREVIOUS FUNCTIONAL STATUS/SOCIAL/FAMILY SUPPORTS:: Stephon resides in [place], [place] with his , Flor. 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 CURRENT FUNCTIONAL STATUS:: Stephon is lying in bed, awaiting EGD. He reports wanting a bowling ball sized cheeseburger because he has not eaten in a few days. He appears to be in good humor, is talkative and forthcoming with information. He talks about his , their life and his adult children who he remains close with. ADVANCE DIRECTIVES:: None on file at [facility]. Has patient been provided with info about the portal/API?: Yes Did the patient sign up for the portal?: No CODE STATUS:: Full Code INSURANCE COVERAGE / FINANCIAL ISSUES:: Medicare. /BS FEP CURRENT HOME/COMMUNITY SERVICES/EQUIPMENT:: No current services or equipment. PRIMARY CARE PHYSICIAN:: Yanely Starkey POTENTIAL DISCHARGE NEEDS:: Follow up appointments. PATIENT/FAMILY EDUCATION NEEDS:: Review of discharge instructions, discuss Ask Me Three. ANTICIPATED BARRIERS TO DISCHARGE:: None identified. TRANSPORTATION:: Via private vehicle with his . PLAN:: Stephon will return home when ready per MD. He will follow up with his PCP and plan of care as prescribed. He will transport via private vehicle with his .
[2019-12-22] MEDS: Lactated Ringers 1,000 ML 100 ML IV (10:06)
--- NOTE | 2019-12-22 11:05 | W.PM.PROGNOT ---
Date of Service Date of service: 12/22/19 Time of Service: 11:05 Assessment and Plan Assessment and plan (1) Acute duodenitis: Status: Acute Assessment and plan: For EGD later today. Duodenal ulcer is suspected. I increased IV protonix to BID; continue H2 elaine. NPO, IVF. H/H stable. Heme all stools. 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 There is no evidence of mesenteric occlusion or ischemia. (3) Anxiety disorder: Status: Acute Assessment and plan: Continue outpatient therapy (4) Primary osteoarthritis of left knee: Status: Chronic Assessment and plan: For now, continue acetaminophen. On discharge, the patient is likely to be discharged off NSAIDs - may require alternative pain management modalities. (5) DVT prophylaxis: Status: Acute Assessment and plan: TEDs/SCDs Chemica DVT ppx is contraindicated in setting of highly suspected duodenal ulcer (6) Discharge planning issues: Status: Acute Assessment and plan: Full code. Discharge plans depend on results of EGD, but will likely be discharged at the earliest tomorrow. Subjective Subjective Interval history since last seen: Mr Fonseca states that he is hungry and continues to have epigastric pain. He has been trying to sleep it off. Denies dizziness, chest pain, shortness of breath, nausea currently. No BM since being in the hospital - priors were brown. Planned for an EGD later this afternoon. Exam Narrative Exam Narrative: General: Pleasant Obese male with a pony tail, A&Ox3, not in acute distress HEENT: EOMI, MMM Heart: RRR, no m/r/g Lungs: CTAB Abdomen: soft, tender in epigastrium, nondistended Extremities: no edema BLE's, wearing NATALIE on RLE but not left. Objective Objective Clinical Data: Abnormal lab results 12/21/19 12/21/19 12/21/19 Range/Units 14:34 14:34 14:34 Hgb 17.7 H (13.5-17.5) g/dL MCV (80-95) fL MCH 33.2 H (27.0-33.0) pg Absolute Monocytes 0.79 H (0.11-0.7) k/cumm Anion Gap 11.8 H (3-11) mmol/L Glucose 132 H (74-106) mg/dL C-Reactive Protein 0.49 H (0.0-0.3) mg/dL Albumin (3.4-5.0) g/dL Triglycerides (<150) mg/dL HDL Cholesterol (40-60) mg/dL Urine Blood (Negative) 12/21/19 12/22/19 12/22/19 Range/Units 16:30 06:12 06:12 Hgb (13.5-17.5) g/dL MCV 95.2 H (80-95) fL MCH 33.5 H (27.0-33.0) pg Absolute Monocytes (0.11-0.7) k/cumm Anion Gap (3-11) mmol/L Glucose (74-106) mg/dL C-Reactive Protein 0.74 H (0.0-0.3) mg/dL Albumin (3.4-5.0) g/dL Triglycerides 197 H (<150) mg/dL HDL Cholesterol 25 L (40-60) mg/dL Urine Blood Trace-intact H (Negative) 12/22/19 Range/Units 06:12 Hgb (13.5-17.5) g/dL MCV (80-95) fL MCH (27.0-33.0) pg Absolute Monocytes (0.11-0.7) k/cumm Anion Gap (3-11) mmol/L Glucose 107 H (74-106) mg/dL C-Reactive Protein (0.0-0.3) mg/dL Albumin 3.3 L (3.4-5.0) g/dL Triglycerides (<150) mg/dL HDL Cholesterol (40-60) mg/dL Urine Blood (Negative) Vital Signs Temperature 37 C 12/22/19 08:23 Temperature Source Tympanic 12/22/19 08:23 Pulse 52 L 12/22/19 08:23 Pulse Rhythm Regular 12/22/19 09:17 Pulse 60 12/21/19 19:50 Respiratory Rate 20 12/22/19 08:23 Respiratory Effort Non-Labored 12/22/19 09:17 Respiratory Depth Normal 12/22/19 09:17 Respiratory Pattern Normal 12/22/19 09:17 Blood Pressure 162/96 H 12/22/19 08:23 Blood Pressure Mean 109 12/21/19 19:46 Blood Pressure Position Sitting 12/21/19 14:15 Pulse Oximetry 97 12/22/19 08:23 Oxygen Delivery Method Room Air 12/22/19 08:23 Oxygen Flow Rate 0 12/22/19 08:23 Pain Level 4 12/22/19 08:23 Intake & Output 12/21/19 12/21/19 12/22/19 11:59 23:59 11:59 Intake Total 1050 / 1050 1050 / 1050 Balance 1050 / 1050 1050 / 1050 Weight 117.934 kg 117.3 kg Intake: IV 1050 / 1050 1050 / 1050 Laboratory Results WBC 6.35 k/cumm (4.4-10.8) 12/22/19 06:12 RBC 4.77 m/cumm (4.50-6.00) 12/22/19 06:12 Hgb 16.0 g/dL (13.5-17.5) 12/22/19 06:12 Hct 45.4 % (40.0-50.0) 12/22/19 06:12 MCV 95.2 fL (80-95) H 12/22/19 06:12 MCH 33.5 pg (27.0-33.0) H 12/22/19 06:12 MCHC 35.2 g/dL (32.0-36.0) 12/22/19 06:12 RDW 13.0 % (11.8-14.1) 12/22/19 06:12 Plt Count 178 x1000/uL (130-400) 12/22/19 06:12 MPV 9.9 fL (8.0-11.0) 12/22/19 06:12 Immature Gran % 0.2 % 12/22/19 06:12 Neutrophils % 59.5 12/22/19 06:12 Lymphocytes % 28.5 12/22/19 06:12 Monocytes % 9.9 12/22/19 06:12 Eosinophils % 1.6 12/22/19 06:12 Basophils % 0.3 12/22/19 06:12 Absolute Neutrophils 3.78 k/cumm (1.2-6.7) 12/22/19 06:12 Absolute Lymphocytes 1.81 k/cumm (1.2-3.4) 12/22/19 06:12 Absolute Monocytes 0.63 k/cumm (0.11-0.7) 12/22/19 06:12 Absolute Eosinophils 0.10 k/cumm (0.0-0.7) 12/22/19 06:12 Absolute Basophils 0.02 k/cumm (0.0-0.2) 12/22/19 06:12 ESR 10 mm/hr (1-20) 12/22/19 06:12 Sodium 138 mmol/L (136-145) 12/22/19 06:12 Potassium 3.8 mmol/L (3.5-5.1) 12/22/19 06:12 Chloride 102 mmol/L (98-107) 12/22/19 06:12 Carbon Dioxide 27.0 mmol/L (21.0-32.0) 12/22/19 06:12 Anion Gap 9.0 mmol/L (3-11) 12/22/19 06:12 BUN 14 mg/dL (7-18) 12/22/19 06:12 Creatinine 0.96 mg/dL (0.70-1.30) 12/22/19 06:12 Estimated GFR/1.73 m2 >= 60.00 (mL/min/1.73m2) 12/22/19 06:12 Glucose 107 mg/dL (74-106) H 12/22/19 06:12 Lactate 1.1 mmol/L (0.6-1.4) 12/21/19 20:10 Calcium 8.6 mg/dL (8.5-10.1) 12/22/19 06:12 Magnesium 2.2 mg/dL (1.8-2.4) 12/22/19 06:12 Total Bilirubin 0.7 mg/dL (0.2-1.0) 12/22/19 06:12 AST 32 U/L (15-37) 12/22/19 06:12 ALT 21 U/L (16-63) 12/22/19 06:12 Alkaline Phosphatase 67 U/L (46-116) 12/22/19 06:12 Troponin I < 0.05 ng/mL (<0.06) 12/21/19 14:34 C-Reactive Protein 0.74 mg/dL (0.0-0.3) H 12/22/19 06:12 Total Protein 6.4 g/dL (6.4-8.2) 12/22/19 06:12 Albumin 3.3 g/dL (3.4-5.0) L 12/22/19 06:12 Triglycerides 197 mg/dL (<150) H 12/22/19 06:12 Total Cholesterol 126 mg/dL (<200) 12/22/19 06:12 LDL Cholesterol, Calc 62 mg/dL (<100) 12/22/19 06:12 HDL Cholesterol 25 mg/dL (40-60) L 12/22/19 06:12 Amylase 41 U/L (25-115) 12/22/19 06:12 Lipase 98 U/L (73-393) 12/22/19 06:12 Urine Color Yellow (Yellow) 12/21/19 16:30 Urine Clarity Clear (Clear) 12/21/19 16:30 Urine pH 7.0 (5-8) 12/21/19 16:30 Ur Specific [place] 1.010 (1.005-1.025) 12/21/19 16:30 Urine Protein Negative mg/dL (Negative) 12/21/19 16:30 Urine Ketones Negative mg/dL (Negative) 12/21/19 16:30 Urine Blood Trace-intact (Negative) H 12/21/19 16:30 Urine Nitrite Negative (Negative) 12/21/19 16:30 Urine Bilirubin Negative (Negative) 12/21/19 16:30 Urine Urobilinogen 0.2 EU/dL (Up TO 0.2) 12/21/19 16:30 Ur Leukocyte Esterase Negative (Negative) 12/21/19 16:30 Urine RBC 0-2 HPF (0-2) 12/21/19 16:30 Urine WBC 0-2 HPF (0-5) 12/21/19 16:30 Ur Epithelial Cells Negative HPF (Negative) 12/21/19 16:30 Urine Crystals Few amorphous HPF (Negative) 12/21/19 16:30 Urine Bacteria Negative HPF (Negative) 12/21/19 16:30 Urine Casts Negative LPF (Negative) 12/21/19 16:30 Urine Mucus Negative (Negative) 12/21/19 16:30 Ur Culture Indicated? No 12/21/19 16:30 Urine Glucose Negative mg/dL (Negative) 12/21/19 16:30 ANCA Immunofluorescen Cancelled 12/21/19 14:34 ANCA Titer Cancelled 12/21/19 14:34 ANCA Pattern Cancelled 12/21/19 14:34
[2019-12-22] MEDS: Normal Saline Flush 10 ML SYR IVP (11:26)
[2019-12-22] MEDS: Pantoprazole 40 MG VIAL IVP (11:26)
[2019-12-22 11:33] VITALS: BP 163/99; PULSE 51; RESP 16; TEMP 37; O2SAT 98
--- NOTE | 2019-12-22 13:25 | STOM_PTH ---
PATIENT: Stephon Fonseca LOC: [id number]#:[id number] AGE/SX: 59/M ROOM: MSJon214 RE12/22/[address]: Catrachito Barrera : 1960 BED: A DIS: 12/22/2019 SPEC #: [id number] RECD: 12/22/19 14:36 STATUS: EDA REQ #: [id number] NEL: 12/22/19 13:[address]: Catrachito Barrera DEPT: Surgical Specimen RECD BY: Kalli Becerra ENTERED: 12/22/19 14:40 SP TYPE: STOMACH OTHR DR: Yanely Starkey Tissues: 1 - BIOPSY BOWEL 2 - STOMACH BIOPSY 3 - STOMACH BIOPSY 4 - ESOPHAGUS BIOPSY 5 - ESOPHAGUS BIOPSY Procedures: GROSS AND MICRO LEVEL 4 Comments: [id number]
--- NOTE | 2019-12-22 14:15 | W.PM.ENDDOP ---
Date of service: 12/22/19 Time of Service: 14:15 Endoscopy Report DATE OF PROCEDURE: 12/22/19 PRE-OP DIAGNOSIS: abdom pain POST-OP DIAGNOSIS: other (. Duodenitis /gastritis/hiatal hernia/mild esophagitis) PROCEDURE: EGD w/ bx SURGEON: Ml Aguirre ANESTHESIA: MAC ESTIMATED BLOOD LOSS: 1 PATHOLOGY: other COMPLICATIONS: None DISPOSITION: PACU INDICATIONS: pain PROCEDURE DESCRIPTION: After informed consent was obtained the patient was take to the procedure room and placed in a supine position. Monitors were applied and a time out was done. The patients name, date of , procedure type, allergies to medications and metal in their body was reviewed. A bite block was placed and the patient was sedated. Once sedated and comfortable the gastroscope was advanced through the oropharynx which was grossly normal into the esophagus. The proximal and mid-esophagus were nl. In the distal esophagus there was sm. hital hernia and mild esophagtis noted. The scope was advanced into the stomach and through the pylorus into the 3rd portion of the duodenum. The duodenum was noted to be moderate duodenitis in a punctate fashion.. Biopsies were done. all specimens are retrieved and no bleeding is noted. The scope was retracted back into the stomach and biopsies were done to rule out H. pylori. There were no ulcers. There is moderate gastritis in a striped fashion. There is no active or old bleeding. The scope was retroflexed. The cardia and fundus were noted to be normal. There small a hiatal hernia noted. The scope was retracted back into the esophagus and biopsies were done of the GE junction to rule out Merritt's. The Z line was irregular. The scope was removed and the patient was woken up and taken back to [facility] in stable condition. Follow up:
[2019-12-22 14:40] LABS: COVID-19 RT-PCR UVMMC Result Negative (Negative)
--- NOTE | 2019-12-22 14:52 | CHAPLAIN ---
Stephon was lying in bed when I visited. He said he's more comfortable than he was, but hasn't eaten in a few days. I explained my role and offered support. He was pleasant, but said he was fine.
[2019-12-22 15:25] VITALS: BP 161/78; PULSE 55; RESP 19; TEMP 37.1; O2SAT 94
[2019-12-22 16:04] LABS: Rheumatoid Factor <8.6 IU/mL (<12.0)
--- NOTE | 2019-12-22 17:47 | W.PM.DS.N ---
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 (8) Anxiety disorder: Status: Acute (9) COVID-19 ruled out by laboratory testing: Status: Acute Discharge Plan Disposition Patient Disposition: HOME Condition: Stable Discharge Details Chief Complaint: Abd Prob Clinical Impression: Acute duodenitis Reason For Visit: DUODENITIS,SUPERIOR MESENTERIC ARTERY INFLAMMATION Admit Date/Time: 12/22/19 11:10 Admit Provider: Catrachito Barrera Attending Provider: Catrachito Barrera Primary Care Provider: Yanely Starkey ED Provider: Lasha Hurtado Hospital Course Hospital Course: Mr Fonseca is a 59 year old male with PMHx of hypertension, hyperlipidemia, osteoarthritis on NSAIDs, and anxiety disorder, who was observed on [facility] hospitalist service for epigastric pain with findings of duodenitis and possible mild mural thickening of the superior mesenteric artery. He never did have GI bleeding. Vasculitis was ruled out with normal ESR. The patient underwent an EGD by Dr Aguirre on 12/22/2019 which showed duodenitis, gastritis, hiatal hernia and mild esophagitis. No ulcers were seen. Biopsies were done. The patient is recommended to stop all NSAIDs and to be discharged home on BID PPI and carafate. He is tolerating a regular consistency diet. He will need to follow up with his PCP in 1-[address] Augirre for the results of his biopsy. He is to discuss his pain management with his PCP, but at this time is being discharged home only on tylenol. He is medically cleared for discharge home today. Home Meds and New Rx's Prescriptions: New acetaminophen [Tylenol] 325 mg Tablet 650 mg PO Q4H PRN PRNQty: 0 RF: 0 sucralfate [Carafate] 1 gram tablet 1 gm PO QACHS Qty: 120 RF: 0 pantoprazole [Protonix] 40 mg tablet,delayed release (DR/EC) 40 mg PO BID Qty: 60 RF: 0 Continued atorvastatin [Lipitor] 20 MG tablet 20 mg PO DAILY RF: 0 lisinopril-hydrochlorothiazide 1 EACH tablet 1 tab PO DAILY RF: 0 risperidone [Risperdal] 0.5 MG tablet 0.5 mg PO BID RF: 0 diazepam 5 MG tablet 5 mg PO DAILY RF: 0 doxepin 100 MG capsule 100 mg PO HS RF: 0 bupropion HCl 75 MG tablet 75 mg PO BID RF: 0 prazosin 2 MG capsule 2 mg PO HS RF: 0 Discontinued naproxen sodium 550 MG tablet 500 mg PO BID RF: 0 aspirin 81 mg Tablet,Chewable 81 mg PO DAILY RF: 0 Discharge Instructions Instructions: Sucralfate (By mouth), Pantoprazole (By mouth), Diet for Stomach Ulcers and Gastritis (ED) Additional Instructions: Return to the hospital with any fever, bleeding, chest pain, or shortness of breath. Follow up with your PCP in 1-[address] Aguirre in 2-3 weeks. Referrals: Yanely Starkey [Primary Care Provider] - Ml Aguirre DO [OSTEOPATHIC DOCTOR] - (2-3 weeks. esophagitis/gastritis/duodenitis ) Activity:: Activity as Tolerated Equipment/Supplies:: No Equipment Needed Diet:: gastritis diet Discharge Orders Discharge Orders: Discharge Order (Routine); Ordered 12/22/19 Ordered By: Marilu Hendricks DS: Summary Status at Discharge Functional status at discharge: independent ambulation Overall status at discharge: patient is progressing back to baseline Mental Status: mental status grossly normal Speech and Movement: speech and movement normal Mood: congruent mood Affect: normal affect Exam Narrative Exam Narrative: General: Pleasant Obese male with a pony tail, A&Ox3, not in acute distress HEENT: EOMI, MMM Heart: RRR, no m/r/g Lungs: CTAB Abdomen: soft, tender in epigastrium, nondistended Extremities: no edema BLE's, wearing NATALIE on RLE but not left. Psych Mental Status: mental status grossly normal Speech and Movement: speech and movement normal Mood: congruent mood Affect: normal affect DS: Data Vitals/I&O Vitals and I&O: Vital Signs Temperature 37.1 C 12/22/19 15:25 Temperature Source Tympanic 12/22/19 15:25 Pulse 55 L 12/22/19 15:25 Pulse Rhythm Regular 12/22/19 15:50 Pulse 60 12/21/19 19:50 Respiratory Rate 19 12/22/19 15:25 Respiratory Effort Non-Labored 12/22/19 15:50 Respiratory Depth Normal 12/22/19 15:50 Respiratory Pattern Normal 12/22/19 15:50 Blood Pressure 161/78 H 12/22/19 15:25 Blood Pressure Mean 109 12/21/19 19:46 Blood Pressure Position Sitting 12/21/19 14:15 Pulse Oximetry 94 L 12/22/19 15:25 Oxygen Delivery Method Room Air 12/22/19 15:25 Oxygen Flow Rate 0 12/22/19 15:25 Pain Level 3 12/22/19 15:25 Intake & Output 12/21/19 12/22/19 12/22/19 23:59 11:59 23:59 Intake Total 1050 / 1050 1050 / 1250 200 / 1250 Balance 1050 / 1050 1050 / 1250 200 / 1250 Weight 117.934 kg 117.3 kg Intake: IV 1050 / 1050 1050 / 1250 200 / 1250 Data Completed and Pending Completed studies during hospitalization [Text1]: CTA abdome/pelvis 12/21/2019: 1. Findings suspicious for either duodenitis or mild acute pancreatitis. Correlate clinically. 2. Question of mild mural thickening involving the superior mesenteric artery. Possible vasculitis. Labs on day of discharge: Labs from last 24 hours 12/22/19 12/22/19 12/22/19 06:12 06:12 06:12 WBC 6.35 RBC 4.77 Hgb 16.0 Hct 45.4 MCV 95.2 H MCH 33.5 H MCHC 35.2 RDW 13.0 Plt Count 178 MPV 9.9 Immature Gran % 0.2 Neutrophils % 59.5 Lymphocytes % 28.5 Monocytes % 9.9 Eosinophils % 1.6 Basophils % 0.3 Absolute Neutrophils 3.78 Absolute Lymphocytes 1.81 Absolute Monocytes 0.63 Absolute Eosinophils 0.10 Absolute Basophils 0.02 ESR 10 Sodium 138 Potassium 3.8 Chloride 102 Carbon Dioxide 27.0 Anion Gap 9.0 BUN 14 Creatinine 0.96 Estimated GFR/1.73 m2 >= 60.00 Glucose 107 H Lactate Calcium 8.6 Magnesium 2.2 Total Bilirubin 0.7 AST 32 ALT 21 Alkaline Phosphatase 67 C-Reactive Protein 0.74 H Total Protein 6.4 Albumin 3.3 L Triglycerides 197 H Total Cholesterol 126 LDL Cholesterol, Calc 62 HDL Cholesterol 25 L Amylase 41 Lipase 98 Stool H. pylori Ag Rheumatoid Factor EVERETTE Titer EVERETTE Titer 2 EVERETTE Titer 3 EVERETTE Interpretation ANCA Immunofluorescen ANCA Titer Proteinase 3 (PR3) Myeloperoxidase Ab ANCA Pattern COVID-19 PCR Nasopharyn COVID-19 PCR Ref Test Perform Site 12/21/19 12/21/19 12/21/19 Unknown 20:50 20:10 WBC RBC Hgb Hct MCV MCH MCHC RDW Plt Count MPV Immature Gran % Neutrophils % Lymphocytes % Monocytes % Eosinophils % Basophils % Absolute Neutrophils Absolute Lymphocytes Absolute Monocytes Absolute Eosinophils Absolute Basophils ESR Sodium Potassium Chloride Carbon Dioxide Anion Gap BUN Creatinine Estimated GFR/1.73 m2 Glucose Lactate 1.1 Calcium Magnesium Total Bilirubin AST ALT Alkaline Phosphatase C-Reactive Protein Total Protein Albumin Triglycerides Total Cholesterol LDL Cholesterol, Calc HDL Cholesterol Amylase Lipase Stool H. pylori Ag Pending Rheumatoid Factor EVERETTE Titer EVERETTE Titer 2 EVERETTE Titer 3 EVERETTE Interpretation ANCA Immunofluorescen ANCA Titer Proteinase 3 (PR3) Myeloperoxidase Ab ANCA Pattern COVID-19 PCR Negative Nasopharyn COVID-19 PCR Not Applicable Ref Test Perform Site [place] [facility] 12/21/19 12/21/19 12/21/19 18:02 18:02 14:34 WBC RBC Hgb Hct MCV MCH MCHC RDW Plt Count MPV Immature Gran % Neutrophils % Lymphocytes % Monocytes % Eosinophils % Basophils % Absolute Neutrophils Absolute Lymphocytes Absolute Monocytes Absolute Eosinophils Absolute Basophils ESR Cancelled Sodium Potassium Chloride Carbon Dioxide Anion Gap BUN Creatinine Estimated GFR/1.73 m2 Glucose Lactate Calcium Magnesium Total Bilirubin AST ALT Alkaline Phosphatase C-Reactive Protein Cancelled Total Protein Albumin Triglycerides Total Cholesterol LDL Cholesterol, Calc HDL Cholesterol Amylase Lipase Stool H. pylori Ag Rheumatoid Factor <8.6 EVERETTE Titer Pending EVERETTE Titer 2 Pending EVERETTE Titer 3 Pending EVERETTE Interpretation Pending ANCA Immunofluorescen Cancelled ANCA Titer Cancelled Proteinase 3 (PR3) Myeloperoxidase Ab ANCA Pattern Cancelled COVID-19 PCR Nasopharyn COVID-19 PCR Ref Test Perform Site 12/21/19 12/21/19 12/21/19 14:34 14:34 14:34 WBC RBC Hgb Hct MCV MCH MCHC RDW Plt Count MPV Immature Gran % Neutrophils % Lymphocytes % Monocytes % Eosinophils % Basophils % Absolute Neutrophils Absolute Lymphocytes Absolute Monocytes Absolute Eosinophils Absolute Basophils ESR 13 Sodium Potassium Chloride Carbon Dioxide Anion Gap BUN Creatinine Estimated GFR/1.73 m2 Glucose Lactate Calcium Magnesium Total Bilirubin AST ALT Alkaline Phosphatase C-Reactive Protein 0.49 H Total Protein Albumin Triglycerides Total Cholesterol LDL Cholesterol, Calc HDL Cholesterol Amylase Lipase Stool H. pylori Ag Rheumatoid Factor EVERETTE Titer EVERETTE Titer 2 EVERETTE Titer 3 EVERETTE Interpretation ANCA Immunofluorescen ANCA Titer Proteinase 3 (PR3) Pending Myeloperoxidase Ab Pending ANCA Pattern COVID-19 PCR Nasopharyn COVID-19 PCR Ref Test Perform Site [facility] Medical History Anxiety disorder (Acute) Hyperlipidemia (Acute) Hypertension (Chronic) Primary osteoarthritis of left knee (Chronic) Osteoarthritis of left knee with worse arthritis between the patella and the femur with lateral subluxation of the patella. Recommend second opinion at [facility] with either Dr. Storm for Dr. Schilling as the patient requests Surgical History History of arthroplasty of left knee (Acute) Social History Smoking/Tobacco Use Status: Former Tobacco Use Alcohol Intake: current Alcohol Intake frequency: holidays/special occasions only Drug use: Occasionally Substance use type: marijuana Do you feel safe in your relationship?: Yes
[2019-12-23 12:05] LABS: Myeloperoxidase Ab IgG <0.2 U; Proteinase 3 Ab (PR3) <0.2 U
[2019-12-23 15:12] LABS: ANA Interpretation Negative (Negative)
== END 2019-12-22 19:30 | disposition home or self-care (01) | DRG 392 ==
LOC: ER 20:56 → MS 21:05
PROVIDERS: Surgery; Admitting Provider Internal Medicine; Emergency Provider Student in an Organized Health Care Education/Training Program; PCP Family Medicine; Visit Provider Internal Medicine
PROC: 0DJ68ZZ Inspection of Stomach, Via Natural or Artificial Opening Endoscopic (ICD-10-PCS; CPT 43235; principal; 2019-12-22 11:00)
DX: K29.80 Duodenitis without bleeding (principal); K55.1 Chronic vascular disorders of intestine; E78.5 Hyperlipidemia, unspecified; F17.210 Nicotine dependence, cigarettes, uncomplicated; I10 Essential (primary) hypertension; F41.9 Anxiety disorder, unspecified; Z79.1 Long term (current) use of non-steroidal anti-inflammatories (NSAID); M17.12 Unilateral primary osteoarthritis, left knee; Z96.651 Presence of right artificial knee joint; K29.00 Acute gastritis without bleeding; K44.9 Diaphragmatic hernia without obstruction or gangrene; K20.9 Esophagitis, unspecified; Z11.59 Encounter for screening for other viral diseases
CPT/HCPCS: 43239; 36415; 80053; 80061; 83690; 85652; 86255; 87338; 88305; 96361; 96365; 96375; 99217; 99220; 99221; 99232; 99252; 99285; U0003; 74174; 81003; 81015; 82150; 83516; 83605; 83735; 84484; 85025; 86038; 86140; 86431; 99238; 99284; G0378; J2001; J2405; J3490

== ENCOUNTER 2020-01-08 12:00 | Outpatient (REF) | payer MEDICARE, BC, SELFPAY | END 2020-01-08 12:20 | LOC: NCHCN 12:00 | PROVIDERS: PCP Family Medicine; Visit Provider Family Medicine | DX: R73.09 Other abnormal glucose (principal); E66.9 Obesity, unspecified | CPT/HCPCS: 83036 ==

== ENCOUNTER 2020-11-04 08:43 | Outpatient (REF) | payer MEDICARE, BC, SELFPAY ==
[2020-11-04 16:13] LABS: Hemoglobin A1C 5.9 % (<5.7)
[2020-11-04 16:24] LABS: ALT 20 U/L (16-63); AST 19 U/L (15-37); Albumin 4.2 g/dL (3.4-5.0); Alkaline Phosphatase 76 U/L (46-116); Anion Gap 9.2 mmol/L (3-11); BUN 18 mg/dL (7-18); Bilirubin, Total 0.6 mg/dL (0.2-1.0); CO2 29.8 mmol/L (21.0-32.0); CREATININE 0.9 mg/dL (0.70-1.30); Calcium 9.4 mg/dL (8.5-10.1); Calculated LDL 86 mg/dL (<100); Chloride 104 mmol/L (98-107); Cholesterol 158 mg/dL (<200); Glucose 106 mg/dL (74-106); HDL Cholesterol 29 mg/dL (40-60); Potassium 4.6 mmol/L (3.5-5.1); Sodium 143 mmol/L (136-145); Total Protein 7.1 g/dL (6.4-8.2); Triglyceride 217 mg/dL (<150)
== END 2020-11-04 08:44 | disposition home or self-care (01) ==
LOC: NCHCN 08:43
PROVIDERS: PCP Family Medicine; Visit Provider Family Medicine
DX: I10 Essential (primary) hypertension (principal); R78.5 Finding of other psychotropic drug in blood; R73.09 Other abnormal glucose
CPT/HCPCS: 80053; 80061; 83036

== ENCOUNTER 2022-07-31 10:39 | Outpatient (REF) | payer MEDICARE, BC, SELFPAY ==
[2022-07-31 14:51] LABS: ALT 22 U/L (16-63); AST 25 U/L (15-37); Albumin 4.1 g/dL (3.4-5.0); Alkaline Phosphatase 77 U/L (46-116); Anion Gap 7.1 mmol/L (3-11); BUN 12 mg/dL (7-18); Bilirubin, Total 0.5 mg/dL (0.2-1.0); CO2 28.9 mmol/L (21.0-32.0); CREATININE 0.9 mg/dL (0.70-1.30); Calcium 9.6 mg/dL (8.5-10.1); Calculated LDL 76 mg/dL (<100); Chloride 106 mmol/L (98-107); Cholesterol 161 mg/dL (<200); Estimated GFR 95.37 (mL/min/1.73m2); Glucose 117 mg/dL (74-106); HDL Cholesterol 34 mg/dL (40-60); Potassium 4.2 mmol/L (3.5-5.1); Sodium 142 mmol/L (136-145); Total Protein 6.8 g/dL (6.4-8.2); Triglyceride 259 mg/dL (<150)
[2022-07-31 22:55] LABS: PSA, Screening 0.4 ng/mL (<=4.5)
== END 2022-07-31 10:40 | disposition home or self-care (01) ==
LOC: NCHCN 10:39
PROVIDERS: PCP Family Medicine; Visit Provider Family Medicine
DX: E11.9 Type 2 diabetes mellitus without complications (principal); I10 Essential (primary) hypertension; Z12.5 Encounter for screening for malignant neoplasm of prostate
CPT/HCPCS: 80053; 80061; 84153

== ENCOUNTER 2022-08-24 03:56 | Outpatient (CLI) | payer MEDICARE, BC, SELFPAY ==
--- NOTE | 2022-08-24 11:05 | DI.CTLCSR_ITS ---
Exam(s) CT CHEST LUNG CANCER SCREEN EXAM: CT CHEST LUNG CANCER SCREEN CLINICAL HISTORY: HX TOBACCO USE, Z87.891, SCREENING FOR LUNG CA TECHNIQUE: Imaging Protocol: Axial computed tomography images with coronal and sagittal reformatted images were created and reviewed COMPARISON: CT CT ABDOMEN PELVIS CTA from 12/21/2019 FINDINGS: Tracheobronchial tree: Patent where visualized. Pulmonary parenchyma: No consolidation or dominant measurable mass. No architectural distortion. Lung Nodules: None. Mediastinum and Jaja: No dominant adenopathy or fluid collection. The esophagus is unremarkable. Thyroid gland: Unremarkable. Lymph nodes: Unremarkable. Pleura: No effusion or pneumothorax. Heart: The heart is not dilated. Moderate coronary artery calcification is present. No pericardial e ffusion. Aorta: Thoracic aorta non-dilated.Atherosclerosis is present. Upper abdomen: There is a simple cyst again seen in the left kidney. No follow-up is recommended. Soft Tissues: Unremarkable. Bones: Within normal limits. IMPRESSION: No pulmonary nodules. Lung RADS Cat 1 - Negative: No nodules and definitely benign nodules Lung-RADS 1.0 CATEGORIES: Category 0 - Prior chest CT exam(s) being located for comparison. Category 1 - Annual screening in 12 months. No nodules or definitely benign nodules. Category 2 - Annual screening in 12 months. Benign appearance. Nodules with low likelihood of becomin g active cancer. Category 3 - 6-month follow-up. Probably benign. Short-term follow-up suggested. Nodules with low lik elihood of becoming active cancer. Category 4A - 3-month follow-up and CT/PET if >8 mm in size. Suspicious finding. Findings which requi re additional testing. Category 4B - Findings which require additional testing and tissue sampling. Suspicious finding. Category 4X - Category 3 or 4 nodules with additional features or imaging findings that increases the suspicion of malignancy. Modifier S- Potentially clinically significant finding. (Non lung cancer) RADIATION DOSE DELIVERED: 86.34mGy.cm Total DLP 86.34mGy.cmTotal DLP DATA REPOSITORY: All CT scans at this facility are submitted to the National Radiology Data Registry (NRDR) Dose Index Registry (DIR) with the [employer] (A[employer]). RADIATION OPTIMIZATION: All CT scans at this facility use at least one of these dose optimization te chniques: automated exposure control; mA and/or kV adjustment per patient size (includes targeted exa ms where dose is matched to clinical indication); or iterative reconstruction.
== END 2022-08-24 04:16 ==
LOC: DI 03:57
PROVIDERS: PCP Family Medicine; Visit Provider Family Medicine
DX: Z12.2 Encounter for screening for malignant neoplasm of respiratory organs (principal); Z87.891 Personal history of nicotine dependence
CPT/HCPCS: 71271

== ENCOUNTER 2024-03-14 08:53 | Outpatient (CLI) | payer MEDICARE, BC, SELFPAY ==
[2024-03-14 09:46] LABS: ALT 20 U/L (16-63); AST 31 U/L (15-37); Albumin 3.9 g/dL (3.4-5.0); Alkaline Phosphatase 82 U/L (46-116); Anion Gap 11.1 mmol/L (3-11); BUN 18 mg/dL (7-18); Bilirubin, Total 0.77 mg/dL (0.2-1.0); CO2 24.9 mmol/L (21.0-32.0); Calculated LDL 69 mg/dL (<100); Chloride 103 mmol/L (98-107); Cholesterol 157 mg/dL (<200); Estimated GFR 83.52 (mL/min/1.73m2); Glucose 184 mg/dL (74-106); HDL Cholesterol 35 mg/dL (40-60); Potassium 4.3 mmol/L (3.5-5.1); Sodium 139 mmol/L (136-145); Total Protein 7.3 g/dL (6.4-8.2); Triglyceride 266 mg/dL (<150)
[2024-03-14 14:52] LABS: Vitamin D 25 Total 32.1 ng/mL (30-100)
[2024-03-14 18:11] LABS: PSA, Screening 0.3 ng/mL (<=4.5)
== END 2024-03-14 08:54 | disposition home or self-care (01) ==
LOC: LBO 08:54
PROVIDERS: PCP Family Medicine; Visit Provider Family Medicine
DX: I10 Essential (primary) hypertension (principal); E78.5 Hyperlipidemia, unspecified
CPT/HCPCS: 36415; 80053; 80061; 82306; 84153